=== PATIENT | female | born 1960 | race Caucasian/White ===

== ENCOUNTER 2016-09-10 03:55 | Emergency (ER) | payer MEDICARE, OTHER ==
[2013-09-21 01:43] VITALS: BMI 36.5
[~2016-09-10 03:55] MED LIST: ASPIRIN325 MG PO; BACTRIM DS TABL1 TAB PO; BAYER CHEWABLE81 MG PO; BENICAR HCT 20-1 TA1 PO; CALAN SR180 MG PO; CENESTIN0.45 MG PO; EFFEXOR75 MG PO; FLEXERIL10 MG PO; GLUCOPHAGE1000 MG PO; GLUCOPHAGE500 MG PO; HYDROCODON-ACE1 EAC7 PO; IMDUR30 MG PO; KLOR-CON M2020 MEQ PO; LEVEMIR100 U/M1 SQ; MIRAPEX0.25 MG PO; NITROSTAT0.6 MG SL; NOVOLOG100 U/M1; RESTORIL15 MG PO; ROBAXIN-750750 MG PO; ZEGERID 20 MG C1 CAP PO; ZIAC 5/6.25 MG1 TAB PO
[2016-09-10 05:03] LABS: BASOPHILS 0.1 % (0-2); EOSINOPHILS 0.1 % (0-7); HEMATOCRIT 39.2 % (36.0-48.0); HEMOGLOBIN 13.1 g/dL (12-16); IMMATURE GRANULOCYTES 0.1 % (0-5); LYMPHOCYTES 4.6 % (15-50); MCH 26.6 pg (26.0-34.0); MCHC 33.4 g/dL (31.0-37.0); MCV 79.7 fL (80.0-100.0); MEAN PLATELET VOLUME 10.9 fL (7.4-10.4); MONOCYTES 1.8 % (2-11); NEUTROPHILS 93.3 % (40-80); PLATELET COUNT 194 10x3/uL (130-400); RBC 4.92 10x6/uL (4.00-5.40); RDW 14.7 % (11.5-14.5); WBC 10.3 10x3/uL (4.8-10.8)
[2016-09-10 05:16] LABS: ALBUMIN 4.2 g/dL (3.4-5.0); ANION GAP 16.7 mmol/L (8-16); BILIRUBIN - TOTAL 0.6 mg/dL (0.2-1.3); CALCIUM 9.3 mg/dL (8.5-10.1); CARBON DIOXIDE 22.3 mmol/L (21.0-32.0); CREATININE - SERUM 1.5 mg/dL (0.6-1.3); PROTEIN - SERUM 8.2 g/dL (6.4-8.2)
== END 2016-09-10 06:55 | disposition home or self-care (01) ==
LOC: D.ER 03:55
PROVIDERS: Emergency Medicine
DX: R11.2 Nausea with vomiting, unspecified (principal); R19.7 Diarrhea, unspecified; A08.4 Viral intestinal infection, unspecified; E86.0 Dehydration

== ENCOUNTER 2016-10-13 17:19 | Observation (INO) | payer MEDICARE, OTHER ==
[~2016-10-13] VITALS: Ht 167.6 cm; Wt 81.1 kg
[2016-10-13 18:51] LABS: BASOPHILS 0.2 % (0-2); EOSINOPHILS 0.2 % (0-7); HEMATOCRIT 35.5 % (36.0-48.0); HEMOGLOBIN 11.5 g/dL (12-16); IMMATURE GRANULOCYTES 0.2 % (0-5); LYMPHOCYTES 22.2 % (15-50); MCH 25.8 pg (26.0-34.0); MCHC 32.4 g/dL (31.0-37.0); MCV 79.8 fL (80.0-100.0); MEAN PLATELET VOLUME 11.3 fL (7.4-10.4); MONOCYTES 9.7 % (2-11); NEUTROPHILS 67.5 % (40-80); PLATELET COUNT 161 10x3/uL (130-400); RBC 4.45 10x6/uL (4.00-5.40); RDW 14.8 % (11.5-14.5); WBC 4.1 10x3/uL (4.8-10.8)
[2016-10-13] MEDS ORDERED: BENICAR20 MG PO (18:52)
[2016-10-13] MEDS ORDERED: LEXAPRO20 MG PO (18:53)
[2016-10-13] MEDS ORDERED: DESERYL100 MG PO (18:53)
--- NOTE | 2016-10-13 19:00 | NUR ---
REPORT RECIVED. LAYING IN BED. CHIKIS ENNIS AT BEDSIDE. ALERT TO PERSON, TIME, AND PLACE. SKIN WARM AND DRY. PUPILS EQUAL, REACTIVE TO LIGHT AND ACCOMODATION. MUCOUS MEMBRANES PINK AND MOIST. CAPILLARY REFILL <3 SECS IN UPPER AND LOWER EXTREMITIES. REDIAL AND POPLITEAL PULSES PALP, EQUAL BILAT. BS ACTIVE X4. REPORTS NO PROBLEMS URINATING. LAST BM 10/13/16. SCAR ON NECK, L SIDE REPORTS IT'S FROM DISK REPAIR. MIDLINE, CHEST SCAR REPORTS IT'S FROM OPEN HEART SURGERY. MULTIPLE ABDOMINAL SCARS REPORTS IT'S FROM DRAINS PUT IN FROM OPEN HEART SURGERY. GAIT STEADY. FULL ROM IN UPPER AND LOWER EXTREMITIES. DENIES PAIN AT THIS TIME. SEE FLOW SHEET FOR COMPLETE ASSESSMENT. CALL LIGHT WITHIN REACH. BED IN LOWEST POSITION. WILL CONTINUE TO MONITOR.
--- NOTE | 2016-10-13 19:06 | NUR ---
RECIEVED FROM ADMISSIONS. ALERT ORIENTED. DENIES ANY PAIN AT PRESSENT TIME. FAMILY AT BEDSIDE. REPORT GIVEN TO [place].
[2016-10-13 19:21] LABS: ALBUMIN 3.8 g/dL (3.4-5.0); ALKALINE PHOSPHATASE 99 U/L (46-116); ALT (SGPT) 42 U/L (10-68); CALC OSMOLALITY 270 mosm/kg (275-300); CALCIUM 8.5 mg/dL (8.5-10.1); CARBON DIOXIDE 26.7 mmol/L (21.0-32.0); CHLORIDE - SERUM 99 mmol/L (98-107); CREATININE - SERUM 1.5 mg/dL (0.6-1.3); POTASSIUM - SERUM 3.8 mmol/L (3.5-5.1); PROTEIN - SERUM 6.9 g/dL (6.4-8.2); SODIUM 133 mmol/L (136-145); UREA NITROGEN 19 mg/dL (7-18); eGFR NON AFRICAN AMERICAN 38 mL/min (90-120)
[2016-10-13 19:25] LABS: GLUCOSE 147 mg/dL (74-106)
--- NOTE | 2016-10-13 19:30 | NUR ---
REPORT RECEIVED. INITIAL ASSESSMENT COMPLETE. PUPILS EQUAL, REACTIVE TO LIGHT AND ACCOMODATION. MUCOUS MEMBRANES PINK AND MOIST. TRACHEA MIDLINE. SYMMETRICAL CHEST RISE AND FALL. S1S2 PRESENT. LUNG SOUNDS CLEAR ALL LOBES. BS ACTIVE X4. RADIAL AND POPLITEAL PULSES PALP BILAT. CAP REFILL IN UPPER AND LOWER EXTREMITIES <3 SECS. FULL ROM IN UPPER AND LOWER EXTREMITIES. STEADY GAIT. LEAD TELLER STRENGTH STRONG. NO PROBLEMS REPORTED WITH URINATING. LAST BM 10/13/16. SEE FLOW SHEET FOR COMPLETE ASSESSMENT. CHIKIS ENNIS AT BEDSIDE. CALL LIGHT WITHIN REACH. BED IN LOWEST POSITION. WILL CONTINUE TO MONITOR.
[2016-10-13 19:38] LABS: CKMB 0.2 U/L (0.0-3.6); CREATINE KINASE 58 UL (21-215); TROPONIN-I < 0.017 ng/mL (0.000-0.060)
--- NOTE | 2016-10-13 21:15 | NUR ---
AWAKE LAYING IN BED. CHIKIS ENNIS AT BEDSIDE. MEDS ADMINISTERED PER EMAR. DENIES FURTHER NEEDS AT THIS TIME. CALL LIGHT WITHIN REACH. BED IN LOWEST POSITION. WILL CONTINUE TO MONITOR.
--- NOTE | 2016-10-13 21:20 | NUR ---
2119 ZUMBA INSTRUCTOR LIGHT, REQUESTING TYLENOL FOR HEADACHE. PAIN RATED 5/10, CONSTANT, THROBBING. 2124 TYLENOL GIVEN PER REQUEST. DENIES FURTHER NEEDS AT THIS TIME. CALL LIGHT WITHIN REACH. BED IN LOWEST POSITION.WILL CONTINUE TO MONITOR.
--- NOTE | 2016-10-13 21:36 | NUR ---
[employer] CLERK LIGHT REQUESTING SOMETHING FOR NAUSEA. ZOFRAN PO GIVEN. DENIES FURTHER NEEDS AT THIS TIME. BED IN LOWEST POSITION. CALL LIGHT WITHIN REACH. WILL CONTINUE TO MONITOR.
[2016-10-13 23:00] VITALS: BP 110/57
--- NOTE | 2016-10-13 23:00 | NUR ---
LAYING IN BED SLEEPING. DENIES NEEDS AT THIS TIME. CALL LIGHT WITHIN REACH. BED IN LOWEST POSITION. WILL CONTINUE TO MONITOR.
[2016-10-14 00:38] VITALS: BP 120/59; BMI 32.8
[2016-10-14 00:40] LABS: CREATINE KINASE 52 UL (21-215)
[2016-10-14 00:41] LABS: TROPONIN-I < 0.017 ng/mL (0.000-0.060)
--- NOTE | 2016-10-14 01:00 | NUR ---
LAYING IN BED AWAKE, RESTING. DENIES NEEDS AT THIS TIME. BED IN LOWEST POSITION. CALL LIGHT WITHIN REACH. WILL CONTINUE TO MONITOR.
--- NOTE | 2016-10-14 02:14 | NUR ---
BUDGET ANALYST LIGHT REQUESTING TYLENOL FOR HEADACHE PAIN. TYLENOL GIVEN. DENIES FURTHER NEEDS AT THIS TIME. CALL LIGHT WITHIN REACH. BED IN LOWEST POSITION.
--- NOTE | 2016-10-14 04:00 | NUR ---
LAYING IN BED SLEEPING. NO CHANGES NOTED. WILL CONTINUE TO MONITOR. CALL LIGHT WITHIN REACH. BED IN LOWEST POSITION.
[2016-10-14 04:54] LABS: APPEARANCE CLEAR (CLEAR); BILIRUBIN NEGATIVE (NEGATIVE); COLOR STRAW (YELLOW); GLUCOSE 1000 mg/dL (NEGATIVE); KETONE NEGATIVE (NEGATIVE); NITRITE NEGATIVE (NEGATIVE); PROTEIN NEGATIVE (NEGATIVE); UROBILINOGEN NORMAL (NORMAL)
[2016-10-14 04:55] LABS: BACTERIA NONE SEEN /hpf (NONE SEEN); EPITHELIAL CELLS 0-5 /hpf (0-5); LEUKOCYTE ESTERASE TRACE (NEGATIVE); RED CELLS - URINE NONE SEEN /hpf (0-5); WHITE CELLS - URINE 0-5 /hpf (0-5)
[2016-10-14 05:14] LABS: BASOPHILS 0.3 % (0-2); EOSINOPHILS 0.5 % (0-7); HEMATOCRIT 33.5 % (36.0-48.0); HEMOGLOBIN 10.9 g/dL (12-16); LYMPHOCYTES 43.2 % (15-50); MCH 26.1 pg (26.0-34.0); MCHC 32.5 g/dL (31.0-37.0); MCV 80.3 fL (80.0-100.0); MEAN PLATELET VOLUME 11.1 fL (7.4-10.4); MONOCYTES 11.4 % (2-11); NEUTROPHILS 44.6 % (40-80); PLATELET COUNT 151 10x3/uL (130-400); RBC 4.17 10x6/uL (4.00-5.40); RDW 14.9 % (11.5-14.5); WBC 3.8 10x3/uL (4.8-10.8)
[2016-10-14 05:36] VITALS: BP 116/58
[2016-10-14 05:44] LABS: CALC OSMOLALITY 279 mosm/kg (275-300); CALCIUM 7.8 mg/dL (8.5-10.1); CARBON DIOXIDE 24.7 mmol/L (21.0-32.0); CHLORIDE - SERUM 105 mmol/L (98-107); CREATINE KINASE 48 UL (21-215); CREATININE - SERUM 1.2 mg/dL (0.6-1.3); GLUCOSE 125 mg/dL (74-106); SODIUM 139 mmol/L (136-145); TROPONIN-I < 0.017 ng/mL (0.000-0.060); UREA NITROGEN 15 mg/dL (7-18); eGFR NON AFRICAN AMERICAN 49 mL/min (90-120)
[2016-10-14 05:46] LABS: POTASSIUM - SERUM 3.2 mmol/L (3.5-5.1)
--- NOTE | 2016-10-14 06:00 | NUR ---
LAYING IN BED SLEEPING. NO CHANGES NOTED. CALLL LIGHT WITHIN REACH. BED IN LOWEST POSITION. WILL CONTINUE TO MONITOR.
[2016-10-14 08:00] VITALS: BP 100/54
[2016-10-14 09:44] VITALS: Ht 167.6 cm; Wt 81.1 kg
[2016-10-14 12:03] VITALS: BP 99/50
[2016-10-14 16:00] VITALS: BP 97/50
--- NOTE | 2016-10-14 16:46 | NUR ---
ALERT AND ORIENTED X4. SITTING UP IN BED. AT BEDSIDE. 66bpm SINUS RHTHYM ON TELEMETRY. REPORTS HEADACHE. TYLENOL GIVEN PER ORDER. FSBS 182 HUM R 4 UNITS GIVEN ORDERED. LEVEMIR 50 UNITS GIVEN ORDERED. DENIES ANY VOMITING. DENIES ANY PAIN OR SOB. CONTINUE PLAN OF CARE. BED LOCKED AND LOW. CALLS LIGHT IN REACH. TWO SIDERAILS UP. REFUSE SCDs.
--- NOTE | 2016-10-14 20:00 | NUR ---
PT RESTING IN BED WITH AT BEDSIDE. ALERT/ORIENTED. SR PER TELEMETRY. NS @ 125ML/HR TO LFA. REVIEWED PLAN OF CARE. SEE ASSESSMENT, MONITOR AND CPOC.
[2016-10-14 21:01] VITALS: BP 103/67
[2016-10-15 01:04] VITALS: BP 105/57
--- NOTE | 2016-10-15 03:58 | NUR ---
PT HAD AWAKENED FROM SLEEP AND FEELING THE BEGINNINGS OF ANOTHER HEADACHE. MEDICATED WITH NORCO 5/325MG. PT STATES HER HEAD FELT BETTER AFTER TAKING THE LAST NORCO AND SHE HAD SLEPT WELL. CPOC.
[2016-10-15 04:18] VITALS: BP 108/64
[2016-10-15 06:01] LABS: BASOPHILS 0.7 % (0-2); EOSINOPHILS 1.4 % (0-7); HEMATOCRIT 32.7 % (36.0-48.0); HEMOGLOBIN 10.6 g/dL (12-16); IMMATURE GRANULOCYTES 0.4 % (0-5); LYMPHOCYTES 41.6 % (15-50); MCH 26.2 pg (26.0-34.0); MCHC 32.4 g/dL (31.0-37.0); MCV 80.7 fL (80.0-100.0); MEAN PLATELET VOLUME 10.2 fL (7.4-10.4); MONOCYTES 11.1 % (2-11); NEUTROPHILS 44.8 % (40-80); PLATELET COUNT 133 10x3/uL (130-400); RBC 4.05 10x6/uL (4.00-5.40); RDW 15.1 % (11.5-14.5)
[2016-10-15 06:12] LABS: WBC 2.8 10x3/uL (4.8-10.8)
[2016-10-15 06:32] LABS: ANION GAP 12.7 mmol/L (8-16); CALCIUM 7.9 mg/dL (8.5-10.1); CHOL - HDL RATIO 8.5 ratio (2.3-4.1); CREATININE - SERUM 1.2 mg/dL (0.6-1.3); LDL-HDL RATIO 4.8 ratio (1.5-3.5)
[2016-10-15 06:33] LABS: POTASSIUM - SERUM 3.7 mmol/L (3.5-5.1)
[2016-10-15 08:00] VITALS: BP 107/56
--- NOTE | 2016-10-15 10:00 | NUR ---
ALERT AND ORIENTED X4. TAKEN TO CT VIA WHEELCHAIR. IV FLUIDS DECREASED TO 50mL/HR PER ORDER. SINUS RHTHYM 72bpm ON TELEMETRY. CONTINUE PLAN OF CARE AND SAFETY PRECAUTIONS.
[2016-10-15 12:00] VITALS: BP 124/71
--- NOTE | 2016-10-15 14:13 | NUR ---
ALERT AND ORIENTED X4. RESTING IN BED. AT BEDSIDE. LT FA IV INFILTRATED. DC LT FA IV TIP INTACT. RESITE IV LT WRIST 22G SUCCESSFUL 1ST ATTEMPT BY RN STUDENT. DENIES PAIN OR SOB. DENIES ANY NEEDS. BED LOCKED AND LOW. CALL LIGHT IN REACH. TWO SIDERAILS UP.
[2016-10-15 16:00] VITALS: BP 129/75
--- NOTE | 2016-10-15 21:10 | NUR ---
PT AWAKE, ALERT, ORIENTED, C/O HEADACHE AND BACK PAIN, DENIES ANY OTHER NEEDS. CONTINUE TO MONITOR CLOSELY.
[2016-10-16] VITALS: BP 110/54
[2016-10-16 04:00] VITALS: BP 92/58
[2016-10-16 05:49] LABS: BASOPHILS 0.6 % (0-2); EOSINOPHILS 3.2 % (0-7); HEMOGLOBIN 10.5 g/dL (12-16); IMMATURE GRANULOCYTES 0.3 % (0-5); LYMPHOCYTES 56.4 % (15-50); MCH 26.4 pg (26.0-34.0); MCHC 32.8 g/dL (31.0-37.0); MCV 80.4 fL (80.0-100.0); MEAN PLATELET VOLUME 10.6 fL (7.4-10.4); MONOCYTES 12.3 % (2-11); NEUTROPHILS 27.2 % (40-80); PLATELET COUNT 151 10x3/uL (130-400); RBC 3.98 10x6/uL (4.00-5.40); RDW 14.9 % (11.5-14.5); WBC 3.4 10x3/uL (4.8-10.8)
[2016-10-16 05:52] LABS: ANION GAP 11.3 mmol/L (8-16); CALCIUM 8.2 mg/dL (8.5-10.1); CARBON DIOXIDE 28.2 mmol/L (21.0-32.0); POTASSIUM - SERUM 3.5 mmol/L (3.5-5.1)
--- NOTE | 2016-10-16 05:54 | NUR ---
PT AWAKE, ALERT, ORIENTED, STATING SHE FEELS BETTER AND SLEPT BETTER THAN SHE HAS IN A WHILE. PT DENIES ANY NEEDS. HOLDING THIS MORNING HUMULIN R/T FSBS BEING 69 THEN 75. PT GIVEN APPLE JUICE AND LISA CRACKERS FOR A SNACK BEFORE BREAKFAST TRAYS ARE SERVED. CONTINUE TO MONITOR CLOSELY.
--- NOTE | 2016-10-16 07:25 | NUR ---
ASSESSMENT DONE. DENIES NEEDS.
[2016-10-16 08:00] VITALS: BP 127/78
--- NOTE | 2016-10-16 08:16 | NUR ---
IV PATENT. NO NEEDS VOICED. CALL LIGHT IN REACH. WILL MONITOR.
[2016-10-16] MEDS ORDERED: HYDROCODON-ACE1 EAC7 PO (13:16)
[2016-10-16] MEDS ORDERED: VIBRAMYCIN 100100 MG PO (13:16)
[2016-10-16] MEDS ORDERED: NEURONTIN 300300 MG PO (13:16)
--- NOTE | 2016-10-16 13:50 | NUR ---
Nutrition Follow Up: Pt reported that she is tolerating diet upon advancement. She denied any N/V/Abdominal pain. Pt is eating 88% meal avg on a diabetic diet. No BM since admit. Meds and labs reviewed. Rec continue current diet as tolerated. RD following.
--- NOTE | 2016-10-16 15:56 | NUR ---
DC AND RX GIVEN TO PT
[2016-10-16 16:03] VITALS: BP 135/69
--- NOTE | 2016-10-16 16:19 | NUR ---
DC HOME PER PERSONAL CAR
== END 2016-10-16 16:20 | disposition home or self-care (01) ==
LOC: D.SDCHOLD 17:19 → OBSVTIME 17:20 → D.M2 17:26
PROVIDERS: ADMIT Family Medicine
DX: R51 Headache (principal); R07.89 Other chest pain; I25.10 Atherosclerotic heart disease of native coronary artery without angina pectoris; I10 Essential (primary) hypertension; E78.5 Hyperlipidemia, unspecified; E11.9 Type 2 diabetes mellitus without complications; R50.9 Fever, unspecified; D70.9 Neutropenia, unspecified; T14.8 Other injury of unspecified body region; W57.XXXA Bitten or stung by nonvenomous insect and other nonvenomous arthropods, initial encounter; Z95.1 Presence of aortocoronary bypass graft; Z87.891 Personal history of nicotine dependence

== ENCOUNTER 2017-08-17 13:25 | Emergency (ER) | payer MEDICARE, OTHER ==
[2016-10-14 09:44] VITALS: BMI 32.7
[~2017-08-17 13:25] MED LIST changes: +BENICAR20 MG PO; +DESERYL100 MG PO; +LEXAPRO20 MG PO; +NEURONTIN 300300 MG PO; +VIBRAMYCIN 100100 MG PO
[2017-08-17 13:55] LABS: BASOPHILS 0.2 % (0-2); EOSINOPHILS 1.2 % (0-7); HEMATOCRIT 35.5 % (36.0-48.0); HEMOGLOBIN 11.7 g/dL (12-16); IMMATURE GRANULOCYTES 0.3 % (0-5); LYMPHOCYTES 26.5 % (15-50); MCH 25.3 pg (26.0-34.0); MCV 76.8 fL (80.0-100.0); MEAN PLATELET VOLUME 10.7 fL (7.4-10.4); MONOCYTES 9.5 % (2-11); NEUTROPHILS 62.3 % (40-80); PLATELET COUNT 151 10x3/uL (130-400); RBC 4.62 10x6/uL (4.00-5.40); RDW 14.6 % (11.5-14.5)
[2017-08-17 14:32] LABS: ALBUMIN 3.6 g/dL (3.4-5.0); ALKALINE PHOSPHATASE 95 U/L (46-116); ALT (SGPT) 30 U/L (10-68); BILIRUBIN - TOTAL 0.41 mg/dL (0.2-1.3); CALC OSMOLALITY 283 mosm/kg (275-300); CALCIUM 8.9 mg/dL (8.5-10.1); CARBON DIOXIDE 29.7 mmol/L (21.0-32.0); CHLORIDE - SERUM 99 mmol/L (98-107); CKMB 0.3 U/L (0.0-3.6); CREATINE KINASE 48 UL (21-215); GLUCOSE 219 mg/dL (74-106); POTASSIUM - SERUM 3.2 mmol/L (3.5-5.1); PROTEIN - SERUM 7.3 g/dL (6.4-8.2); SODIUM 138 mmol/L (136-145); TROPONIN-I < 0.017 ng/mL (0.000-0.060); UREA NITROGEN 15 mg/dL (7-18); eGFR NON AFRICAN AMERICAN 61 mL/min (90-120)
== END 2017-08-17 15:34 | disposition home or self-care (01) ==
LOC: D.ER 13:25
PROVIDERS: Family Medicine
DX: R07.89 Other chest pain (principal)

== ENCOUNTER 2019-10-23 20:43 | Inpatient (IN) | payer MEDICARE, OTHER ==
[~2019-10-23] VITALS: Ht 167.6 cm; Wt 91.2 kg
--- NOTE | 2019-10-23 19:05 | NUR ---
PATIENT RESTING IN BED WITH NO S/S OF DISTRESS. INSTRUCTED PATIENT ON USE OF OPHTHALMIC ASSISTANT. PATIENT VERBALIZED UNDERSTANDING AND DENIES OTHER NEEDS AT THIS TIME. BED IN LOWEST POSITION AND CALL LIGHT WITHIN REACH. ENCOURAGED THE PATIENT TO CALL IF HE HAS NEEDS. WILL CONTINUE TO MONITOR.
[2019-10-23 22:02] LABS: BASOPHILS 0.2 % (0-2); EOSINOPHILS 1.5 % (0-7); HEMATOCRIT 38.2 % (36.0-48.0); HEMOGLOBIN 12.5 g/dL (12-16); IMMATURE GRANULOCYTES 0.1 % (0-5); LYMPHOCYTES 23.8 % (15-50); MCH 27.4 pg (26.0-34.0); MCHC 32.7 g/dL (31.0-37.0); MCV 83.8 fL (80.0-100.0); MEAN PLATELET VOLUME 11.1 fL (7.4-10.4); MONOCYTES 6.3 % (2-11); NEUTROPHILS 68.1 % (40-80); PLATELET COUNT 195 10x3/uL (130-400); RBC 4.56 10x6/uL (4.00-5.40); RDW 14.6 % (11.5-14.5); WBC 8.5 10x3/uL (4.8-10.8)
[2019-10-23 22:08] LABS: ANION GAP 6.7 mmol/L (8-16); CALCIUM 8.9 mg/dL (8.5-10.1); CARBON DIOXIDE 32.6 mmol/L (21.0-32.0); POTASSIUM - SERUM 3.3 mmol/L (3.5-5.1)
--- NOTE | 2019-10-23 22:24 | NUR ---
PLACED 20G IV TO PATIENT'S RIGHT FA ON FIRST ATTEMPT.
[2019-10-23 22:28] LABS: BILIRUBIN NEGATIVE (NEGATIVE); GLUCOSE 1000 mg/dL (NEGATIVE); KETONE NEGATIVE (NEGATIVE); NITRITE NEGATIVE (NEGATIVE); UROBILINOGEN NORMAL (NORMAL)
[2019-10-23 23:37] VITALS: BP 133/72; BMI 32.5
[2019-10-24 00:25] VITALS: BP 144/72
[2019-10-24] MEDS ORDERED: OMEPRAZOLE40 MG PO (01:56)
[2019-10-24] MEDS ORDERED: TRAZODONE HCL150 MG PO (02:01)
[2019-10-24] MEDS ORDERED: LEXAPRO20 MG PO (02:01)
[2019-10-24] MEDS ORDERED: OZEMPIC1 MG/0.75 SC (02:02)
[2019-10-24] MEDS ORDERED: FARXIGA10 MG PO (02:02)
[2019-10-24] MEDS ORDERED: NEURONTIN600 MG PO (02:03)
[2019-10-24] MEDS ORDERED: BACLOFEN10 MG PO (02:03)
[2019-10-24] MEDS ORDERED: FAMOTIDINE10 MG PO (02:04)
[2019-10-24] MEDS ORDERED: DICLOFENAC SODI50 MG PO (02:04)
[2019-10-24] MEDS ORDERED: KEFLEX500 MG PO (02:05)
[2019-10-24 05:34] VITALS: BP 100/62
--- NOTE | 2019-10-24 07:10 | HP ---
PATIENT: HALEY ENNIS MEDICAL RECORD: [id number] ACCOUNT: [id number] LOCATION:D.MS [id number] : 60 ADMISSION DATE: 10/23/19 PCP: JONATHON MARCIAL MD HISTORY AND PHYSICAL EXAMINATION REASON FOR ADMISSION: Abdominal pain and mass. HISTORY OF PRESENT ILLNESS: The patient is a 59-year-old female who is metabolic syndrome patient who had noticed upon getting her normal basal insulin injection, right lower quadrant, 4 days ago, stating which she did so. The next day began to feel warm and gradually enlarged in size. She was seen in a clinic in [place] where she was visiting and placed on Keflex in addition to her chronic oral doxycycline, which she takes for acne. That was 2 days ago. She got progressively worse and low-grade fever of 100.4 degrees Fahrenheit and now can hardly walk due to the abdominal pain. So, the area has enlarged 2 inches around where she was marked at the outpatient clinic. She was seen in my office this evening and has a 6 x 4 inch oval erythematous firm mass with central softening just right below into the right of the umbilicus. This is exquisitely tender to touch. She is now being admitted for abdominal wall abscess/cellulitis in a diabetic. His blood sugars were over 250. PAST MEDICAL HISTORY: CAD post-CABG, osteoarthritis, AODM, hyperlipidemia, history of gastritis, essential hypertension, and [place]. History of mitral regurgitation. PAST SURGICAL HISTORY: Anterior cervical fusion, appendectomy, lumbar discectomy, section, cholecystectomy, coronary artery bypass grafting, elbow surgery, heart catheterization, total hysterectomy. She has had knee arthrocentesis, knee replacement, lumbar fusion, some skin cancers excised. She had a facial abscess drained in 2017. FAMILY HISTORY: Parents are , both father had severe CAD, hyperlipidemia, and diabetes. Mother had hypertension. SOCIAL HISTORY: Never smoked, never used tobacco or alcohol. She is , has a son living in [place] and they were visiting. MEDICATIONS: Omeprazole 40 mg capsule daily, Levemir 50 units subq q.12 hours a.c., Lexapro 20 mg 1-1/2 tablets daily, trazodone 100 mg 1-1/2 tabs at bedtime, losartan-HCTZ 20/12.5 one p.o. q.a.m., Forxiga 10 mg p.o. daily, Ozempic 3.25mg subq once weekly, baclofen 5 mg 4 times a day p.r.n. low back pain, gabapentin 300 mg 2 caps by mouth 3 times daily, Pepcid 20 mg b.i.d., and diclofenac sodium 50 mg b.i.d. REVIEW OF SYSTEMS: GENERAL: She has been fatigued with low-grade fever for the last 48 hours. No confusion. HEENT: No recent visual change, sinus congestion, or sore throat. RESPIRATORY: No SOB, cough. CARDIAC: No exertional rest chest pain, claudication, or edema. GASTROINTESTINAL: No nausea, vomiting, change in stools or blood per rectum. She has intermittent GERD. ENDOCRINE: Denies polyuria, polydipsia, heat or cold intolerance. Blood sugars ranged from 200-250 since her infection occurred. MUSCULOSKELETAL: Chronic arthralgias in her cervical and lumbar spine and both HISTORY AND PHYSICAL [id number] ENNIS,TRENNA CHARU knees. No radiculopathy currently. PSYCHIATRIC: Admits to some anxiety and insomnia, but not depressed currently on Lexapro 30 mg daily, has never being suicidal. INTEGUMENT: As above. NEUROLOGIC: No history of MRSA. PHYSICAL EXAMINATION: VITAL SIGNS: Temperature 100.4 Fahrenheit orally. Her height is 5 feet 6 inches with a weight of 202 pounds. Blood pressure 128/80, heart rate 82 and regular. BMI 32.6. GENERAL: The patient in obvious pain. She is alert and oriented. HEENT: Eyes are clear. Oropharynx unremarkable. NECK: Supple, without bruits or masses. CHEST: Clear without wheeze or rales. HEART: Regular rate and rhythm. BREASTS: Not examined. ABDOMEN: Obese with a 5 x 6 oval erythematous tender firm mass just to the right and below the umbilicus this is somewhat soft in the center and was hard to examine due to pain. Groin unremarkable. Perineum unremarkable. EXTREMITIES: 2+ pretibial edema of the knees. Healed knee replacement scars bilaterally. NEUROLOGICAL: Oriented to person, place, and time. Cranial nerves intact. Gait is normal except for difficulty walking due to pain. LABORATORY DATA: Currently pending. ASSESSMENT: 1. Abdominal wall cellulitis and possible abscess. 2. AODM, fair control. 3. History of hyperlipidemia, metabolic syndrome, CAD clinically stable, chronic pain syndrome, cervical and lumbar fusion, obesity, asthma, and rosacea. PLAN: The patient is being directly admitted to the medical floor for IV fluids, sliding scale insulin. Denies surgical consult in the morning, possible I and D. We will place on vancomycin and Rocephin with pharmacy to follow vancomycin levels. I explained course of continued therapy to the patient and her and they agree. She has not been exposed to Covid nor had symptoms with Covid neither was her . TRANSINT:[id number] Voice Confirmation ID: [id number] DOCUMENT ID: [id number] JONATHON MARCIAL MD at 0710 CC: [id number] DICTATION DATE: 10/23/192036 HOUSE REGISTRY RN: 10/23/192213 ADM IN [facility] [address] [place] [address]
--- NOTE | 2019-10-24 08:25 | NUR ---
AWAKE AND ALERT. ORIENTED X3. C/O NAUSEA AT THIS TIME. REQUESTED AND GIVEN 4MG ZOFRAN SLOW IVP FOR SAME. LUNGS ARE CLEAR BILATERALLY, NO COUGH NOTED. SKIN IS INTACT WITHOUT REDNESS EXCEPT SMALL REDDENED FIRM AREA TO RIGHT SIDE OF LOWER ABDOMEN. WILL MONITOR. IV TO RIGHT FOREARM IS PATENT WITHOUT REDNESS AT INSERTION SITE. DENIES NEEDS.
[2019-10-24 09:06] VITALS: BP 122/66
--- NOTE | 2019-10-24 10:00 | NUR ---
OFF UNIT VIA BED TO SURGERY.
--- NOTE | 2019-10-24 12:18 | NUR ---
ABDOMINAL DRESSING MARKED FOR BLEEDING
--- NOTE | 2019-10-24 12:50 | NUR ---
RETURNED FROM SURGERY. A/O X 3. NO C/O PAIN AT THIS TIME. DRESSING TO RIGHT LOWER QUAD SLIGHTLY SOILED . WILL MONITOR. FAMILY AT BEDSIDE.
[2019-10-24 12:52] VITALS: BP 109/46
[2019-10-24 13:44] VITALS: Ht 167.6 cm; Wt 91.2 kg
--- NOTE | 2019-10-24 17:00 | NUR ---
FSBS 180. REFUSED SS INSULIN. HAD JUST FINISHED EATING GRAHM CRACKERS. WILL EDGARD.
[2019-10-24 17:09] VITALS: BP 132/71
--- NOTE | 2019-10-24 17:34 | OP ---
PATIENT NAME: HALEY ENNIS MEDICAL RECORD: [id number] :60 LOCATION:D.MS [facility]Renae ADMISSION DATE:10/23/19 SURGEON: DAISHA ONOFRE MD DATE OF OPERATION: 10/24/2019 SURGEON: Daisha Onofre MD PREOPERATIVE DIAGNOSES: Abdominal wall cellulitis with abscess, diabetes. POSTOPERATIVE DIAGNOSES: Abdominal wall cellulitis with abscess, diabetes. PROCEDURE PERFORMED: Incision and drainage of multiloculated complex abdominal wall abscess, 8 x 7 x 7 cm. ANESTHESIA: General. COMPLICATIONS: None. SPECIMENS: Anaerobic and aerobic culture. ESTIMATED BLOOD LOSS: Minimal WOUND CLASS: Grossly contaminated. OPERATIVE COURSE: After consent was obtained, the patient was taken to the operating room and placed in supine position on the operating table. Next, general anesthesia was given. Thereafter, a timeout was performed to confirm the correct patient and procedure. The area of the right abdominal wall was prepped and draped in typical sterile fashion. A 10 cc of local anesthetic were injected. A skin incision was made over the area of greatest fluctuance and medially, after the skin incision was made, there was approximately 30-40 cc of purulent fluid that egressed from the wound. Anaerobic and aerobic cultures were obtained and sent for Gram stain culture and sensitivity. The loculations were taken down with blunt finger dissection. The abscess cavity was then copiously irrigated with saline. The abscess cavity measured 8 x 7 x 7 cm. The wound was then packed with Kerlix gauze soaked in peroxide and Betadine and covered with sterile gauze dressings. At the end of the case, all needle and instrument counts were correct. No complications occurred. The patient was extubated and transferred to the PACU in stable condition. TRANSINT:[id number] Voice Confirmation ID: [id number] DOCUMENT ID: [id number] DAISHA ONOFRE MD at 1734 CC: [id number] DICTATION DATE: 10/24/19 1205 PROFESSOR OF GERMAN: 10/24/19 1524 [place] [address]
--- NOTE | 2019-10-24 18:48 | NUR ---
ATE ALL OF SUPPER. DENIES NEEDS. NO CHANGES NOTED.
[2019-10-24 20:00] VITALS: BP 103/53
--- NOTE | 2019-10-24 20:30 | NUR ---
PT SITTING UP IN BED WITHOUT DISTRESS, AOX4. DENIES PAIN AT THIS TIME. FSBS 186, 8 UNITS GIVEN PER SS AND LEVEMIR. IV RIGHT FA INFUSING D5 1/2NS @ 75. REFUSES SCDS. UP AD CHIKIS. DRESSING TO RLQ CDI. REQUESTED AND PROVIDED ICE CHIPS. DENIES OTHER NEEDS AT THIS TIME. CL IN REACH, WILL CTM
--- NOTE | 2019-10-24 22:30 | NUR ---
PT STATES BURNING PAIN TO RIGHT SIDE 09/13, GAVE NORCO ORDERED. DENIES OTHER NEEDS, WILL CTM
[2019-10-25] VITALS: BP 104/54
--- NOTE | 2019-10-25 01:00 | NUR ---
PT LYING IN BED SLEEPING WITHOUT DISTRESS, WILL CTM
[2019-10-25 06:02] LABS: BASOPHILS 0.1 % (0-2); EOSINOPHILS 1.3 % (0-7); HEMATOCRIT 32.8 % (36.0-48.0); HEMOGLOBIN 10.3 g/dL (12-16); IMMATURE GRANULOCYTES 0.1 % (0-5); LYMPHOCYTES 27.5 % (15-50); MCHC 31.4 g/dL (31.0-37.0); MEAN PLATELET VOLUME 10.8 fL (7.4-10.4); MONOCYTES 8.5 % (2-11); NEUTROPHILS 62.5 % (40-80); PLATELET COUNT 182 10x3/uL (130-400); RBC 3.82 10x6/uL (4.00-5.40); RDW 14.7 % (11.5-14.5); WBC 6.8 10x3/uL (4.8-10.8)
[2019-10-25 06:17] LABS: MCV 85.9 fL (80.0-100.0)
[2019-10-25 06:53] LABS: ANION GAP 9.8 mmol/L (8-16); CALCIUM 8.1 mg/dL (8.5-10.1); CARBON DIOXIDE 29.9 mmol/L (21.0-32.0); POTASSIUM - SERUM 3.7 mmol/L (3.5-5.1)
[2019-10-25 06:55] LABS: CREATININE - SERUM 1.5 mg/dL (0.6-1.3)
[2019-10-25 08:35] VITALS: BP 113/58
[2019-10-25 13:03] VITALS: BP 112/50
--- NOTE | 2019-10-25 16:20 | NUR ---
BS ELEVATED TODAY MEDICATED PER MD ORDERS. MD CHANGED ABD WOUND DRESSING TODAY AT BEDSIDE.
[2019-10-25 17:17] VITALS: BP 107/81
[2019-10-25 20:00] VITALS: BP 101/53
--- NOTE | 2019-10-25 20:00 | NUR ---
PT SITTING UP IN BED WITHOUT DISTRESS, AOX4. REQUESTED AND GIVEN NORCO FOR PAIN 5/10 TO ABD. IV RIGHT FA INFUSING D5 1/2NS @ 75. REFUSES SCDS. GIVEN CUP OF ICE. DENIES OTHER NEEDS. CL IN REACH, WILL CTM
[2019-10-26] VITALS: BP 120/48
[2019-10-26 04:00] VITALS: BP 123/63
[2019-10-26 08:21] VITALS: BP 136/70
[2019-10-26 11:49] VITALS: BP 129/67
[2019-10-26 15:47] VITALS: BP 134/70
--- NOTE | 2019-10-26 18:00 | NUR ---
DRESSING CHANGE TO RIGHT ABD PER MD ORDERS. WOUND WITHOUT REDNESS AND SWELLING. SLIGHT SEROSANGUINESS DRAINAGE NOTED. DENIES PAIN DURING DRESSING CHANGE. TOLERATED WELL. PT REORTS DISCHARGE TOMORROW.
[2019-10-26 20:00] VITALS: BP 137/68
--- NOTE | 2019-10-26 20:00 | NUR ---
PT SITTING UP IN BED WITHOUT DISTRESS, AOX4. DENIES PAIN AT THIS TIME. IV RIGHT FA INFUSING NS @ 30. DENIES NEEDS. CL IN REACH, WILL CTM
[2019-10-27] VITALS: BP 117/69
[2019-10-27 04:00] VITALS: BP 131/58
--- NOTE | 2019-10-27 07:15 | NUR ---
REC'D IN BED AWAKE AND ALERT. RESP EVEN AND UNLABORED WITH NO DISTRESS NOTED. CAN EXPRESS NEEDS AND WANTS. NO C/O NOTED. ASSESSMENT COMPLETED. C/L IN REACH AT BEDSIDE.
[2019-10-27 08:40] VITALS: BP 133/72
--- NOTE | 2019-10-27 10:16 | MORECARE ---
CASE MANAGEMENT DISCHARGE SUMMARY PATIENT: HALEY ENNIS UNIT: [id number] ADM DATE: 10/23/19 AGE: 59 : 60 SEX: F ROOM/BED: D.2206 AUTHOR: JUANITO HERNANDEZ PHYSICIAN: REFERRING PHYSICIAN: JONATHON MARCIAL MD DATE OF SERVICE: 10/27/19 Discharge Plan Patient Name: HALEY ENNIS [facility] [facility] 1960 Planned Disposition: Home with Home Health Anticipated Discharge Date: Discharge Date: Expected LOS: Initial Reviewer: [email or web address] Initial Review Date: 10/23/2019 Generated: 10/27/19 11:15 am Patient Name: HALEY ENNIS Page [phone] at 1016 All edits/amendments must be made on the electronic document DICTATION DATE: 10/27/19 1015 PENCILLER: LORRAINE 10/27/19 1015 RPT#: [id number] DC DATE: STATUS: ADM IN [facility] [address] [place] [address] END OF REPORT
--- NOTE | 2019-10-27 10:25 | MORECARE ---
CASE MANAGEMENT DISCHARGE SUMMARY PATIENT: HALEY ENNIS UNIT: [id number] ADM DATE: 10/23/19 AGE: 59 : 60 SEX: F ROOM/BED: D.2206 AUTHOR: JUANITO HERNANDEZ PHYSICIAN: REFERRING PHYSICIAN: JONATHON MARCIAL MD DATE OF SERVICE: 10/27/19 Discharge Plan Patient Name: HALEY ENNIS Facility: [facility]:[place] : 1960 Planned Disposition: Home with Home Health Anticipated Discharge Date: Discharge Date: Expected LOS: Initial Reviewer: [email or web address] Initial Review Date: 10/23/2019 Generated: 10/27/19 11:24 am Comments DCP- Discharge Planning Updated by [email or web address]: Donna Mosley on 10/27/19 9:[address] Patient Name: HALEY ENNIS Admission Status: Elective Accout number: [id number] Admission Date: 10-23-2019 : 1960 Admission Diagnosis:CELLULITIS OF ABDOMINAL WALL Attending: JONATHON MARCIAL Current LOS: 4 Anticipated DC Date: Planned Disposition: Home with Home Health Primary Insurance: MEDICARE A & B Discharge Planning Comments: CM met with patient to complete initial dc planning assessment. CM educated patient on the CM role and verbal consent given by patient to complete assessment. Patient lives at home with her spouse where she is independent with her care. At discharge patient plans to return home and feels this is a safe discharge. CM discussed availability of home health, rehab services, and medical equipment. She will be discharging home with home health for wound care and dressing changes. JULIETA with [facility] in [place]. IMM also explained and given. Her spouse will be her class b driver home. I will contact [facility] and let them know. Patient denied known discharge needs at this time. CM will continue to follow and will assist as needed with dc plans/needs. Licensed Practical Nurse: Donna Mosley DCPIA - Discharge Planning Initial Assessment Updated by [email or web address]: Donna Mosley on 10/27/19 10:16 am * Is the patient Alert and Oriented? Yes * How many steps to enter\exit or inside your home? * PCP * Pharmacy [facility] IN [place] * Preadmission Environment Home with Family * ADLs Independent * Equipment Glucometer * List name and contact numbers for known caregivers / representatives who currently or will assist patient after discharge: CHIKIS () [phone] * Verbal permission to speak to the caregivers and representatives has been obtained from the patient. N/A * Community resources currently utilized None * Additional services required to return to the preadmission environment? Yes * Can the patient safely return to the preadmission environment? Yes * Has this patient been hospitalized within the prior 30 days at any hospital? No Coverage Notice Reviewer: [email or web address] Mosley Notice Issued Date-Time: 10/27/2019 9:20 Notice Type: IM Discharge Notice Notice Delivered To: Patient Relationship to Patient: Music Producer Name: Delivery Method: HAND - Hand Delivered Steph Days: Prior Verbal Notification: Recipient Understood Notice: Yes Recipient Signature: Yes Med Rec Note Co-signed by Attending: Coverage Notice Comment: Reviewer: [email or web address] Moslye Notice Issued Date-Time: 10/27/2019 9:20 Notice Type: Patient Choice Letter Notice Delivered To: Patient Relationship to Patient: Music Producer Name: Delivery Method: HAND - Hand Delivered Steph Days: Prior Verbal Notification: Recipient Understood Notice: Yes Recipient Signature: Yes Med Rec Note Co-signed by Attending: Coverage Notice Comment: [email or web address] for [facility] [place] Last DP export: 10/27/19 9:16 a Patient Name: HALEY ENNIS Page [phone] at 1025 All edits/amendments must be made on the electronic document DICTATION DATE: 10/27/19 1024 NUTRITION AIDES TEACHER: LORRAINE 10/27/19 1024 RPT#: [id number] DC DATE: STATUS: ADM IN [facility] [address] [place] [address] END OF REPORT
--- NOTE | 2019-10-27 10:30 | NUR ---
DRESSING CHANGED TO ABD PER ORDERS. TOLERATED WELL. NO C/O NOTED OR VOICED. WILL COMTINUE TO OBSERVE FOR NEEDS. C/L IN REACH AT BEDSIDE.
--- NOTE | 2019-10-27 10:36 | MORECARE ---
CASE MANAGEMENT DISCHARGE SUMMARY PATIENT: HALEY ENNIS UNIT: [id number] ADM DATE: 10/23/19 AGE: 59 : 60 SEX: F ROOM/BED: D.2206 AUTHOR: JUANITO HERNANDEZ PHYSICIAN: REFERRING PHYSICIAN: JONATHON MARCIAL MD DATE OF SERVICE: 10/27/19 Discharge Plan Patient Name: HALEY ENNIS Facility: [facility]:[place] : 1960 Planned Disposition: Home with Home Health Anticipated Discharge Date: Discharge Date: Expected LOS: Initial Reviewer: [email or web address] Initial Review Date: 10/23/2019 Generated: 10/27/19 11:36 am Comments DCP- Discharge Planning Updated by [email or web address]: Donna Mosley on 10/27/19 9:[address] Patient Name: HALEY ENNIS Admission Status: Elective Accout number: [id number] Admission Date: 10-23-2019 : 1960 Admission Diagnosis:CELLULITIS OF ABDOMINAL WALL Attending: JONATHON MARCIAL Current LOS: 4 Anticipated DC Date: Planned Disposition: Home with Home Health Primary Insurance: MEDICARE A & B Discharge Planning Comments: CM met with patient to complete initial dc planning assessment. CM educated patient on the CM role and verbal consent given by patient to complete assessment. Patient lives at home with her spouse where she is independent with her care. At discharge patient plans to return home and feels this is a safe discharge. CM discussed availability of home health, rehab services, and medical equipment. She will be discharging home with home health for wound care and dressing changes. JULIETA with [facility] in [place]. IMM also explained and given. 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 I will contact [facility] and let them know. Patient denied known discharge needs at this time. CM will continue to follow and will assist as needed with dc plans/needs. Wooden Tank Erector: Donna Mosley DCPIA - Discharge Planning Initial Assessment Updated by [email or web address]: Donna Mosley on 10/27/19 10:16 am * Is the patient Alert and Oriented? Yes * How many steps to enter\exit or inside your home? * PCP * Pharmacy [facility] IN [place] * Preadmission Environment Home with Family * ADLs Independent * Equipment Glucometer * List name and contact numbers for known caregivers / representatives who currently or will assist patient after discharge: CHIKIS () [phone] * Verbal permission to speak to the caregivers and representatives has been obtained from the patient. N/A * Community resources currently utilized None * Additional services required to return to the preadmission environment? Yes * Can the patient safely return to the preadmission environment? Yes * Has this patient been hospitalized within the prior 30 days at any hospital? No External Providers [facility] Next Contact Date: Service Request Date: Service Type: Resolution: Reviewer: Comments: Coverage Notice Reviewer: [email or web address] Sharee Mosley Notice Issued Date-Time: 10/27/2019 9:20 Notice Type: IM Discharge Notice Notice Delivered To: Patient Relationship to Patient: Shirt Operator Name: Delivery Method: HAND - Hand Delivered Steph Days: Prior Verbal Notification: Recipient Understood Notice: Yes Recipient Signature: Yes Med Rec Note Co-signed by Attending: Coverage Notice Comment: Reviewer: [email or web address] Mosley Notice Issued Date-Time: 10/27/2019 9:20 Notice Type: Patient Choice Letter Notice Delivered To: Patient Relationship to Patient: Shirt Operator Name: Delivery Method: HAND - Hand Delivered Steph Days: Prior Verbal Notification: Recipient Understood Notice: Yes Recipient Signature: Yes Med Rec Note Co-signed by Attending: Coverage Notice Comment: julieta for [facility] in [place] Last DP export: 10/27/19 9:25 a Patient Name: HALEY ENNIS Page [id number] at 1036 All edits/amendments must be made on the electronic document DICTATION DATE: 10/27/19 1036 PERSONAL CARE ASSISTANT: LORRAINE 10/27/19 1036 RPT#: [id number] DC DATE: STATUS: ADM IN [facility] [address] [place] [address] END OF REPORT
[2019-10-27] MEDS ORDERED: HYDROCODON-ACE1 EAC7 PO (10:44)
[2019-10-27] MEDS ORDERED: BACTRIM DS TAB1 EAC1 PO (11:16)
[2019-10-27] MEDS ORDERED: HYDROCODON-ACE1 EA10 PO (11:17)
--- NOTE | 2019-10-27 12:39 | NUR ---
DC HOME AT THIS TIME IN STABLE CONDITION UPON DEPARTURE.
--- NOTE | 2019-10-27 14:43 | MORECARE ---
CASE MANAGEMENT DISCHARGE SUMMARY PATIENT: HALEY ENNIS UNIT: [id number] ADM DATE: 10/23/19 AGE: 59 : 60 SEX: F ROOM/BED: D.2206 AUTHOR: JUANITO HERNANDEZ PHYSICIAN: REFERRING PHYSICIAN: JONATHON MARCIAL MD DATE OF SERVICE: 10/27/19 Discharge Plan Patient Name: HALEY ENNIS Facility: [facility]:[place] : 1960 Planned Disposition: Home with Home Health Anticipated Discharge Date: Discharge Date: 10/27/2019 Expected LOS: 0 Initial Reviewer: [email or web address] Initial Review Date: 10/23/2019 Generated: 10/27/19 3:42 pm Comments DCP- Discharge Planning Updated by [email or web address]: Donna Mosley on 10/27/19 9:[address] Patient Name: HALEY ENNIS Admission Status: Elective Accout number: [id number] Admission Date: 10-23-2019 : 1960 Admission Diagnosis:CELLULITIS OF ABDOMINAL WALL Attending: JONATHON MARCIAL Current LOS: 4 Anticipated DC Date: Planned Disposition: Home with Home Health Primary Insurance: MEDICARE A & B Discharge Planning Comments: CM met with patient to complete initial dc planning assessment. CM educated patient on the CM role and verbal consent given by patient to complete assessment. Patient lives at home with her spouse where she is independent with her care. At discharge patient plans to return home and feels this is a safe discharge. CM discussed availability of home health, rehab services, and medical equipment. She will be discharging home with home health for wound care and dressing changes. JULIETA with [facility] in [place]. IMM also explained and given. 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 I will contact [facility] and let them know. Patient denied known discharge needs at this time. CM will continue to follow and will assist as needed with dc plans/needs. Satellite Communications Engineer: Donna Mosley DCPIA - Discharge Planning Initial Assessment Updated by [email or web address]: Donna Mosley on 10/27/19 10:16 am * Is the patient Alert and Oriented? Yes * How many steps to enter\exit or inside your home? * PCP * Pharmacy [facility] IN [place] * Preadmission Environment Home with Family * ADLs Independent * Equipment Glucometer * List name and contact numbers for known caregivers / representatives who currently or will assist patient after discharge: CHIKIS () [phone] * Verbal permission to speak to the caregivers and representatives has been obtained from the patient. N/A * Community resources currently utilized None * Additional services required to return to the preadmission environment? Yes * Can the patient safely return to the preadmission environment? Yes * Has this patient been hospitalized within the prior 30 days at any hospital? No Coverage Notice Reviewer: [email or web address] Mosley Notice Issued Date-Time: 10/27/2019 9:20 Notice Type: IM Discharge Notice Notice Delivered To: Patient Relationship to Patient: Orthopedic Physical Therapist Name: Delivery Method: HAND - Hand Delivered Steph Days: Prior Verbal Notification: Recipient Understood Notice: Yes Recipient Signature: Yes Med Rec Note Co-signed by Attending: Coverage Notice Comment: Reviewer: [email or web address] Mosley Notice Issued Date-Time: 10/27/2019 9:20 Notice Type: Patient Choice Letter Notice Delivered To: Patient Relationship to Patient: Orthopedic Physical Therapist Name: Delivery Method: HAND - Hand Delivered Steph Days: Prior Verbal Notification: Recipient Understood Notice: Yes Recipient Signature: Yes Med Rec Note Co-signed by Attending: Coverage Notice Comment: j[facility]eta for [facility] in [place] Last DP export: 10/27/19 9:36 a Patient Name: HALEY ENNIS Page [id number] at 1443 All edits/amendments must be made on the electronic document DICTATION DATE: 10/27/19 1442 MOTORCYCLE REPAIRER: LORRAINE 10/27/19 1442 RPT#: [id number] DC DATE:10/27/19 STATUS: DIS IN [facility] [address] [place] [address] END OF REPORT
[2019-10-31 18:08] LABS: AEROBE ID Final report (()); AEROBE ID Preliminary report (())
== END 2019-10-27 12:41 | disposition home health service (06) | DRG 638 ==
LOC: D.MS 20:43
PROVIDERS: Surgery; ADMIT Family Medicine; ATTEND Family Medicine
PROC: 0W9F3ZZ Drainage of Abdominal Wall, Percutaneous Approach (ICD-10-PCS; principal; 2019-10-24 12:15)
DX: E11.628 Type 2 diabetes mellitus with other skin complications (principal); L03.311 Cellulitis of abdominal wall; I25.10 Atherosclerotic heart disease of native coronary artery without angina pectoris; E66.9 Obesity, unspecified; J45.909 Unspecified asthma, uncomplicated; L71.9 Rosacea, unspecified; E78.5 Hyperlipidemia, unspecified; Z68.35 Body mass index [BMI] 35.0-35.9, adult; I10 Essential (primary) hypertension; E11.9 Type 2 diabetes mellitus without complications; K21.9 Gastro-esophageal reflux disease without esophagitis